=== PATIENT | female | born 1985 | race Caucasian/White ===

== ENCOUNTER → 2016-06-25 | Outpatient (CLI) | payer OTHER | LOC: EMI 16:36 | DX: R51 Headache (principal) | CPT/HCPCS: 70551 ==

== ENCOUNTER 2016-12-29 22:29 | Emergency (ER) | payer SELFPAY | END 2016-12-30 01:00 | disposition home or self-care (01) | LOC: ER1 22:29 | DX: J20.9 Acute bronchitis, unspecified (principal); Z90.49 Acquired absence of other specified parts of digestive tract; Z88.5 Allergy status to narcotic agent; Z88.8 Allergy status to other drugs, medicaments and biological substances; Z91.040 Latex allergy status | CPT/HCPCS: 71010; 99284 ==